=== PATIENT | female | born 1965 | race Asian ===

== ENCOUNTER 2018-01-24 12:25 | Inpatient (IN) | payer OTHER, SELFPAY ==
[~2018-01-24] VITALS: Ht 162.6 cm; Wt 91.1 kg
[2018-01-24] MEDS ORDERED: SODIUM CHLORIDE FLUSH 10ML SYR IVF ONE (14:30)
[2018-01-24 14:45] LABS: BASOPHILS # (AUTO) 0.01 x10^3/uL (0-0.1); BASOPHILS % (AUTO) 0 % (0-1); EOSINOPHILS # (AUTO) 0.38 x10^3/uL (0-0.4); EOSINOPHILS % (AUTO) 4 % (1-7); LYMPHOCYTES # (AUTO) 1.54 x10^3/uL (1-3.4); LYMPHOCYTES % (AUTO) 17 % (22-44); MD NO; MEAN CORPUSCULAR HEMOGLOBIN 24.8 pg (27.0-34.8); MEAN CORPUSCULAR HGB CONC 32.6 g/dL (32.4-35.8); MEAN CORPUSCULAR VOLUME 75.9 fL (80-100); MEAN PLATELET VOLUME 7.9 fL (7.4-10.4); MONOCYTES # (AUTO) 0.54 x10^3/uL (0.2-0.8); MONOCYTES % (AUTO) 6 % (2-9); NEUTROPHILS # (AUTO) 6.79 x10^3/uL (1.8-6.8); NEUTROPHILS % (AUTO) 73 % (42-75); PLATELET COUNT 371 x10^3/uL (130-400); RED BLOOD COUNT 5.95 x10^6/uL (3.82-5.3); RED CELL DISTRIBUTION WIDTH 13.7 % (9.6-15.2)
[2018-01-24 14:48] LABS: ALANINE AMINOTRANSFERASE 46 U/L (12-78); ALBUMIN 3.2 g/dL (3.4-5.0); ANION GAP 10 mmol/L (5-15); CALCIUM 8.8 mg/dL (8.5-10.1); CHLORIDE 107 mmol/L (98-107); CREATININE 1.03 mg/dL (0.55-1.02)
[2018-01-24 14:50] LABS: ALKALINE PHOSPHATASE 112 U/L (45-117); BILIRUBIN,TOTAL 0.1 mg/dL (0.2-1.0); TOTAL PROTEIN 8.4 g/dL (6.4-8.2)
[2018-01-24 15:14] LABS: MICROSCOPIC INDICATED
[2018-01-24 15:19] LABS: CULTURE INDICATED? NO
[2018-01-24] MEDS ORDERED: OMNIPAQUE 350 MG/ML, 100ML BOTTLE ONE (15:21)
[2018-01-24] MEDS ORDERED: LABETALOL 5MG/ML, 20ML ONE (16:51)
[2018-01-24] MEDS: LABETALOL 5MG/ML, 20ML IVPush PRN (16:56)
[2018-01-24] MEDS ORDERED: LABETALOL 5MG/ML, 20ML IVPush PRN (17:00)
[2018-01-24] MEDS ORDERED: GUAIFENESIN/COD200MG-20MG/10ML LIQUID PO PRN (17:00)
[2018-01-24] MEDS ORDERED: ONDANSETRON 2MG/ML, 2ML IVPush PRN (17:00)
[2018-01-24] MEDS ORDERED: ONDANSETRON ODT 4 MG PO PRN (17:00)
[2018-01-24] MEDS ORDERED: hydrALAzine 20 MG/ML, 1ML ONE (17:03)
[2018-01-24] MEDS: hydrALAzine 20 MG/ML, 1ML IVPush PRN (17:07)
[2018-01-24] MEDS ORDERED: MORPHINE SULFATE 4 MG/ML, 1ML ONE (17:18)
[2018-01-24] MEDS: MORPHINE SULFATE 4 MG/ML, 1ML IVPush PRN (17:28)
[2018-01-24 18:06] VITALS: BP 183/120
[2018-01-24 18:28] VITALS: BP 168/113
[2018-01-24 19:26] VITALS: BP 148/92
[2018-01-24 20:45] VITALS: BP 158/108
[2018-01-24] MEDS: ACETAMINOPHEN 325 MG TABLET PO PRN (21:14)
[2018-01-24 23:48] LABS: AMPHETAMINE SCREEN, URINE Negative (Negative); BARBITURATE SCREEN, URINE Negative (Negative); BENZODIAZEPINE SCREEN, URINE Negative (Negative); CANNABINOID SCREEN, URINE Negative (Negative); COCAINE SCREEN, URINE Negative (Negative); METHADONE SCREEN, URINE Negative (Negative); OPIATE SCREEN, URINE Positive (Negative)
[2018-01-25] VITALS (10 sets, daily range): BP systolic 122–191; BP diastolic 72–140
[2018-01-25 06:03] LABS: BASOPHILS # (AUTO) 0.04 x10^3/uL (0-0.1); BASOPHILS % (AUTO) 0 % (0-1); EOSINOPHILS # (AUTO) 0.36 x10^3/uL (0-0.4); EOSINOPHILS % (AUTO) 3 % (1-7); LYMPHOCYTES # (AUTO) 1.34 x10^3/uL (1-3.4); LYMPHOCYTES % (AUTO) 12 % (22-44); MD NO; MEAN CORPUSCULAR HEMOGLOBIN 25.2 pg (27.0-34.8); MEAN CORPUSCULAR HGB CONC 32.5 g/dL (32.4-35.8); MEAN CORPUSCULAR VOLUME 77.5 fL (80-100); MEAN PLATELET VOLUME 7.7 fL (7.4-10.4); MONOCYTES # (AUTO) 0.76 x10^3/uL (0.2-0.8); MONOCYTES % (AUTO) 7 % (2-9); NEUTROPHILS # (AUTO) 8.34 x10^3/uL (1.8-6.8); NEUTROPHILS % (AUTO) 77 % (42-75); PLATELET COUNT 384 x10^3/uL (130-400); RED BLOOD COUNT 5.48 x10^6/uL (3.82-5.3)
[2018-01-25 06:07] LABS: ALBUMIN 2.9 g/dL (3.4-5.0); ANION GAP 9 mmol/L (5-15); CALCIUM 8.6 mg/dL (8.5-10.1); CHLORIDE 107 mmol/L (98-107)
[2018-01-25 06:15] LABS: ALANINE AMINOTRANSFERASE 46 U/L (12-78); ALKALINE PHOSPHATASE 102 U/L (45-117); BILIRUBIN,TOTAL 0.1 mg/dL (0.2-1.0); CHOL/HDL RATIO 5.4; CHOLESTEROL, TOTAL 102 mg/dL (140-239); FREE T4 (FREE THYROXINE) 1.27 ng/dL (0.76-1.46); HDL CHOL % 19 % (28-40); HDL CHOLESTEROL (DIRECT) 19 mg/dL (40-60); LDL CHOLESTEROL,CALCULATED 50 mg/dL (54-169); LDL/HDL RATIO 2.6 (0.5-3.0); TOTAL PROTEIN 7.7 g/dL (6.4-8.2); TRIGLYCERIDES 166 mg/dL (50-200); VLDL CHOLESTEROL 33 mg/dL (0-25)
[2018-01-25 08:22] LABS: INTERNATIONAL NORMALIZED RATIO 0.97 (0.93-1.1)
[2018-01-25] MEDS: MORPHINE SULFATE 4 MG/ML, 1ML IVPush PRN ×2 (09:36→17:49)
[2018-01-25] MEDS: DOCUSATE 100 MG CAPSULE PO PRN ×2 (13:39→20:20)
[2018-01-25] MEDS: hydrALAzine 20 MG/ML, 1ML IVPush PRN (16:50)
[2018-01-25] MEDS: LABETALOL 5MG/ML, 20ML IVPush PRN (17:49)
[2018-01-25] MEDS: HYDROcodone/APAP 5/325 TABLET PO PRN (22:14)
[2018-01-25 22:44] LABS: HEMOGLOBIN A1C 6.1 % (4.2-6.3)
[2018-01-26 01:00] VITALS: BP 142/89
[2018-01-26] MEDS: MORPHINE SULFATE 4 MG/ML, 1ML IVPush PRN ×4 (01:12→18:48)
[2018-01-26 07:19] VITALS: BP 167/104
[2018-01-26] MEDS ORDERED: BISACODYL 10 MG SUPP ONE (09:03)
[2018-01-26] MEDS: LISINOPRIL 10 MG TABLET PO SCH (09:06)
[2018-01-26] MEDS: HYDROcodone/APAP 5/325 TABLET PO PRN ×2 (09:10→17:24)
[2018-01-26] MEDS: BISACODYL 10 MG SUPP PR PRN (09:10)
[2018-01-26] MEDS: hydrALAzine 20 MG/ML, 1ML IVPush PRN (11:52)
[2018-01-26 12:00] VITALS: BP 150/80
[2018-01-26] MEDS: DOCUSATE 100 MG CAPSULE PO PRN (12:40)
[2018-01-26] MEDS: ACETAMINOPHEN 325 MG TABLET PO PRN (12:40)
[2018-01-26] MEDS ORDERED: POLYETHYLENE GLYCOL 17 GM PACKET NG PRN (13:00)
[2018-01-26] MEDS ORDERED: MORPHINE SULFATE 4 MG/ML, 1ML ONE (14:14)
[2018-01-26 19:35] VITALS: BP 137/91
[2018-01-26] MEDS ORDERED: METOPROLOL SUCCINATE 25 MG TAB.ER.24H PO SCH (21:00)
[2018-01-26] MEDS: OXYcodone/APAP 7.5/325MG TABLET PO PRN (21:10)
[2018-01-27 02:02] VITALS: BP 132/86
[2018-01-27] MEDS: MORPHINE SULFATE 4 MG/ML, 1ML IVPush PRN ×5 (02:50→23:08)
[2018-01-27 04:59] LABS: BASOPHILS # (AUTO) 0.02 x10^3/uL (0-0.1); BASOPHILS % (AUTO) 0 % (0-1); EOSINOPHILS # (AUTO) 0.33 x10^3/uL (0-0.4); EOSINOPHILS % (AUTO) 3 % (1-7); LYMPHOCYTES # (AUTO) 1.52 x10^3/uL (1-3.4); LYMPHOCYTES % (AUTO) 14 % (22-44); MD NO; MEAN CORPUSCULAR HGB CONC 32.6 g/dL (32.4-35.8); MEAN CORPUSCULAR VOLUME 76.6 fL (80-100); MEAN PLATELET VOLUME 7.7 fL (7.4-10.4); MONOCYTES # (AUTO) 0.88 x10^3/uL (0.2-0.8); MONOCYTES % (AUTO) 8 % (2-9); NEUTROPHILS # (AUTO) 8.53 x10^3/uL (1.8-6.8); NEUTROPHILS % (AUTO) 76 % (42-75); PLATELET COUNT 419 x10^3/uL (130-400); RED BLOOD COUNT 5.61 x10^6/uL (3.82-5.3); RED CELL DISTRIBUTION WIDTH 14.1 % (9.6-15.2)
[2018-01-27 05:05] LABS: ANION GAP 10 mmol/L (5-15); CALCIUM 8.9 mg/dL (8.5-10.1); CHLORIDE 104 mmol/L (98-107)
[2018-01-27 05:07] LABS: CREATININE 0.96 mg/dL (0.55-1.02)
[2018-01-27] MEDS ORDERED: CARVEDILOL 6.25 MG TABLET PO SCH (08:00)
[2018-01-27] MEDS: LISINOPRIL 10 MG TABLET PO SCH (08:09)
[2018-01-27 08:47] VITALS: BP 136/94
[2018-01-27] MEDS: OXYcodone/APAP 7.5/325MG TABLET PO PRN (10:48)
[2018-01-27] MEDS ORDERED: FAMOTIDINE 20 MG/2 ML IVPush ONE (11:00)
[2018-01-27] MEDS ORDERED: DIPHENHYDRAMINE 50 MG/ML, 1ML IVPush ONE (11:00)
[2018-01-27] MEDS ORDERED: methylPREDNISolone SOD SUCC 125 MG/2 ML IVPush ONE (11:00)
[2018-01-27] MEDS ORDERED: POLYETHYLENE GLYCOL 17 GM PACKET NG PRN (13:30)
[2018-01-27] MEDS: AMLODIPINE 5 MG TABLET PO SCH ×2 (13:48→23:00)
[2018-01-27 14:20] VITALS: BP 157/99
[2018-01-27] MEDS ORDERED: GOLYTELY 4,000ML ORAL.SOL PO ONE (17:30)
[2018-01-27] MEDS: CARVEDILOL 25 MG TABLET PO SCH ×2 (17:56→18:00)
[2018-01-27] MEDS: CHLORTHALIDONE 25 MG TABLET PO SCH (18:04)
[2018-01-27 21:20] VITALS: BP 116/76
[2018-01-28 02:59] VITALS: BP 127/80
[2018-01-28 05:51] LABS: BASOPHILS # (AUTO) 0.03 x10^3/uL (0-0.1); BASOPHILS % (AUTO) 0 % (0-1); EOSINOPHILS # (AUTO) 0.14 x10^3/uL (0-0.4); EOSINOPHILS % (AUTO) 1 % (1-7); LYMPHOCYTES # (AUTO) 1.23 x10^3/uL (1-3.4); LYMPHOCYTES % (AUTO) 11 % (22-44); MD NO; MEAN CORPUSCULAR HGB CONC 32.7 g/dL (32.4-35.8); MEAN CORPUSCULAR VOLUME 76.5 fL (80-100); MEAN PLATELET VOLUME 7.6 fL (7.4-10.4); MONOCYTES # (AUTO) 0.96 x10^3/uL (0.2-0.8); MONOCYTES % (AUTO) 8 % (2-9); NEUTROPHILS # (AUTO) 9.37 x10^3/uL (1.8-6.8); NEUTROPHILS % (AUTO) 80 % (42-75); PLATELET COUNT 393 x10^3/uL (130-400); RED CELL DISTRIBUTION WIDTH 13.8 % (9.6-15.2)
[2018-01-28] MEDS: MORPHINE SULFATE 4 MG/ML, 1ML IVPush PRN (05:59)
[2018-01-28] MEDS: CARVEDILOL 25 MG TABLET PO SCH ×2 (05:59→17:17)
[2018-01-28 06:03] LABS: CHLORIDE 105 mmol/L (98-107)
[2018-01-28 06:10] LABS: ALANINE AMINOTRANSFERASE 50 U/L (12-78); ALBUMIN 2.8 g/dL (3.4-5.0); ALKALINE PHOSPHATASE 140 U/L (45-117); ANION GAP 8 mmol/L (5-15); BILIRUBIN,TOTAL 0.4 mg/dL (0.2-1.0); CALCIUM 8.1 mg/dL (8.5-10.1); TOTAL PROTEIN 7.3 g/dL (6.4-8.2)
[2018-01-28] MEDS ORDERED: FENTANYL PF 250 MCG/5ML ONE (07:00)
[2018-01-28] MEDS ORDERED: MIDAZOLAM 1 MG/ML, 2ML ONE (07:00)
[2018-01-28] MEDS ORDERED: INDIGO CARMINE 0.8%, 5ML ONE (07:09)
[2018-01-28] MEDS ORDERED: METHYLENE BLUE 10 MG/ML 10ML ONE (07:09)
[2018-01-28] MEDS ORDERED: HEPARIN 1,000 UNITS/ML, 10ML ONE (07:10)
[2018-01-28] MEDS ORDERED: NOREPINEPHRINE 1 MG/ML, 4ML ONE (07:13)
[2018-01-28] MEDS ORDERED: CALCIUM CHLORIDE 10%, 10ML SYR ONE (07:13)
[2018-01-28] MEDS ORDERED: ALBUMIN HUMAN 5% 1,000 ML ONE (07:14)
[2018-01-28] MEDS: AMLODIPINE 5 MG TABLET PO SCH ×2 (09:00→21:32)
[2018-01-28] MEDS: CHLORTHALIDONE 25 MG TABLET PO SCH (09:00)
[2018-01-28] MEDS ORDERED: hydrALAzine 20 MG/ML, 1ML IV PRN (09:30)
[2018-01-28] MEDS ORDERED: PROCHLORPERAZINE 5 MG/ML, 2ML IV PRN (09:30)
[2018-01-28] MEDS ORDERED: LABETALOL 5MG/ML, 20ML IV PRN (09:30)
[2018-01-28] MEDS ORDERED: FENTANYL PF 100 MCG/2ML IV PRN (09:30)
[2018-01-28] MEDS ORDERED: DIPHENHYDRAMINE 50 MG/ML, 1ML IVPush PRN (09:30)
[2018-01-28] MEDS ORDERED: HALOPERIDOL 5 MG/ML IV PRN (09:30)
[2018-01-28] MEDS ORDERED: EPHEDRINE 50 MG/ML, 1ML IVPush PRN (10:30)
[2018-01-28] MEDS ORDERED: DO NOT GIVE XX SCH ×2 (10:30)
[2018-01-28] MEDS ORDERED: HYDROmorphone 1 MG/ML, 1ML IV PRN ×2 (10:30→15:14)
[2018-01-28] MEDS ORDERED: NALBUPHINE 10 MG/ML, 1ML IVPush PRN (10:30)
[2018-01-28] MEDS ORDERED: NALOXONE 0.4 MG/ML, 1ML IVPush PRN ×2 (10:30)
[2018-01-28] MEDS ORDERED: CEFAZOLIN 1,000 MG ONE (10:32)
[2018-01-28] MEDS ORDERED: ROCURONIUM 10MG/ML,5ML ONE (10:32)
[2018-01-28] MEDS ORDERED: PROPOFOL 10 MG/ML, 20ML ONE (10:32)
[2018-01-28] MEDS ORDERED: DEXAMETHASONE 4 MG/ML, 1ML ONE (10:32)
[2018-01-28] MEDS ORDERED: MORPHINE SULFATE 4 MG/ML, 1ML ONE (10:32)
[2018-01-28] MEDS ORDERED: SUCCINYLCHOLINE 20 MG/ML, 10ML ONE (10:32)
[2018-01-28] MEDS ORDERED: NEOSTIGMINE 1 MG/ML, 10ML ONE (10:32)
[2018-01-28] MEDS ORDERED: ONDANSETRON 2MG/ML, 2ML ONE (10:32)
[2018-01-28] MEDS ORDERED: GLYCOPYRROLATE 0.2MG/1ML, 5ML ONE (10:32)
[2018-01-28] MEDS ORDERED: PHENYLEPHRINE 10 MG/ML ONE (11:11)
[2018-01-28] MEDS ORDERED: HYDROmorphone 2 MG/ML, 1ML ONE ×3 (11:44→15:46)
[2018-01-28] MEDS: HYDROmorphone 1 MG/ML, 1ML IV PRN ×4 (11:45→12:25)
[2018-01-28] MEDS ORDERED: BUPIVACAINE/PF 0.5%, 30ML 62.5 ML in SODIUM CHLORIDE 0.9% 187.5 ML EPIDCONT SCH (12:30)
[2018-01-28] MEDS ORDERED: MEPERIDINE/PF 50 MG/ML ONE (12:32)
[2018-01-28] MEDS: MEPERIDINE/PF 25MG/0.5ML IVPush PRN ×2 (12:35→12:53)
[2018-01-28 13:34] VITALS: BP 125/81
[2018-01-28] MEDS: POTASSIUM CHLORIDE 20 MEQ in D5%-0.45% NACL 1,000 ML IV SCH (15:50)
[2018-01-28] MEDS: BUPIVACAINE/PF 0.5%, 30ML 62.5 ML in SODIUM CHLORIDE 0.9% 187.5 ML EPIDCONT SCH (17:00)
[2018-01-28] MEDS: PIPERACILLIN/TAZO/PMX 3.375GM 50 ML IV SCH ×2 (17:17→23:21)
[2018-01-28 17:18] VITALS: BP 112/71
[2018-01-28 19:06] VITALS: BP 118/69
[2018-01-28] MEDS: SODIUM CHLORIDE FLUSH 10ML SYR IVF SCH (21:26)
[2018-01-28] MEDS: FAMOTIDINE 20 MG/2 ML IV SCH (21:32)
[2018-01-29 01:08] VITALS: BP 112/76
[2018-01-29] MEDS: OXYcodone/APAP 7.5/325MG TABLET PO PRN ×3 (02:43→15:54)
[2018-01-29] MEDS: POTASSIUM CHLORIDE 20 MEQ in D5%-0.45% NACL 1,000 ML IV SCH ×2 (03:16→11:21)
[2018-01-29] MEDS: PIPERACILLIN/TAZO/PMX 3.375GM 50 ML IV SCH ×4 (05:00→23:28)
[2018-01-29 05:34] LABS: BASOPHILS % (AUTO) 0 % (0-1); EOSINOPHILS # (AUTO) 0.03 x10^3/uL (0-0.4); EOSINOPHILS % (AUTO) 0 % (1-7); LYMPHOCYTES # (AUTO) 0.82 x10^3/uL (1-3.4); LYMPHOCYTES % (AUTO) 7 % (22-44); MD NO; MEAN CORPUSCULAR HGB CONC 32.3 g/dL (32.4-35.8); MEAN CORPUSCULAR VOLUME 77.4 fL (80-100); MEAN PLATELET VOLUME 7.5 fL (7.4-10.4); MONOCYTES # (AUTO) 0.98 x10^3/uL (0.2-0.8); MONOCYTES % (AUTO) 8 % (2-9); NEUTROPHILS # (AUTO) 10.75 x10^3/uL (1.8-6.8); NEUTROPHILS % (AUTO) 86 % (42-75); PLATELET COUNT 410 x10^3/uL (130-400); RED BLOOD COUNT 5.22 x10^6/uL (3.82-5.3); RED CELL DISTRIBUTION WIDTH 13.9 % (9.6-15.2)
[2018-01-29 05:44] LABS: ALBUMIN 2.4 g/dL (3.4-5.0); ANION GAP 7 mmol/L (5-15); CALCIUM 7.8 mg/dL (8.5-10.1); CHLORIDE 104 mmol/L (98-107)
[2018-01-29 05:48] LABS: ALANINE AMINOTRANSFERASE 88 U/L (12-78); ALKALINE PHOSPHATASE 155 U/L (45-117); BILIRUBIN,TOTAL 0.6 mg/dL (0.2-1.0); CREATININE 0.83 mg/dL (0.55-1.02); TOTAL PROTEIN 6.5 g/dL (6.4-8.2)
[2018-01-29] MEDS: CARVEDILOL 25 MG TABLET PO SCH ×2 (06:07→17:49)
[2018-01-29] MEDS: BUPIVACAINE/PF 0.5%, 30ML 62.5 ML in SODIUM CHLORIDE 0.9% 187.5 ML EPIDCONT SCH ×2 (06:35→17:00)
[2018-01-29 07:01] VITALS: BP 120/75
[2018-01-29] MEDS: AMLODIPINE 5 MG TABLET PO SCH ×2 (07:48→20:48)
[2018-01-29] MEDS: SODIUM CHLORIDE FLUSH 10ML SYR IVF SCH ×2 (07:48→20:48)
[2018-01-29] MEDS: CHLORTHALIDONE 25 MG TABLET PO SCH (07:48)
[2018-01-29] MEDS: FAMOTIDINE 20 MG/2 ML IV SCH ×2 (07:48→20:48)
[2018-01-29 12:02] VITALS: BP 117/77
[2018-01-29] MEDS: DIAZEPAM 5 MG/ML, 2ML IV PRN (18:37)
[2018-01-29 19:55] VITALS: BP 158/89
[2018-01-29] MEDS: BISACODYL 10 MG SUPP PR PRN (20:48)
[2018-01-29] MEDS ORDERED: SIMETHICONE 80 MG CHEW TAB ONE (21:13)
[2018-01-29] MEDS: DOCUSATE 100 MG CAPSULE PO PRN (21:28)
[2018-01-29] MEDS ORDERED: SIMETHICONE 80 MG CHEW TAB PO PRN (21:30)
[2018-01-30] MEDS: DIAZEPAM 5 MG/ML, 2ML IV PRN (00:16)
[2018-01-30 01:59] VITALS: BP 160/85
[2018-01-30 04:28] LABS: BASOPHILS # (AUTO) 0.04 x10^3/uL (0-0.1); BASOPHILS % (AUTO) 0 % (0-1); EOSINOPHILS # (AUTO) 0.43 x10^3/uL (0-0.4); EOSINOPHILS % (AUTO) 4 % (1-7); LYMPHOCYTES # (AUTO) 1.19 x10^3/uL (1-3.4); LYMPHOCYTES % (AUTO) 10 % (22-44); MD NO; MEAN CORPUSCULAR HEMOGLOBIN 25.1 pg (27.0-34.8); MEAN PLATELET VOLUME 7.5 fL (7.4-10.4); MONOCYTES # (AUTO) 1.05 x10^3/uL (0.2-0.8); MONOCYTES % (AUTO) 9 % (2-9); NEUTROPHILS # (AUTO) 9.57 x10^3/uL (1.8-6.8); NEUTROPHILS % (AUTO) 78 % (42-75); PLATELET COUNT 402 x10^3/uL (130-400); RED BLOOD COUNT 4.94 x10^6/uL (3.82-5.3); RED CELL DISTRIBUTION WIDTH 13.7 % (9.6-15.2)
[2018-01-30 04:46] LABS: CHLORIDE 102 mmol/L (98-107)
[2018-01-30 04:47] LABS: ALBUMIN 2.4 g/dL (3.4-5.0); ANION GAP 6 mmol/L (5-15); CALCIUM 7.2 mg/dL (8.5-10.1); CREATININE 0.74 mg/dL (0.55-1.02)
[2018-01-30] MEDS: CARVEDILOL 25 MG TABLET PO SCH ×2 (05:39→18:30)
[2018-01-30] MEDS: PIPERACILLIN/TAZO/PMX 3.375GM 50 ML IV SCH ×2 (05:39→10:55)
[2018-01-30] MEDS: POTASSIUM CHLORIDE 20 MEQ in D5%-0.45% NACL 1,000 ML IV SCH ×2 (06:25→17:18)
[2018-01-30 06:48] VITALS: BP 127/82
[2018-01-30] MEDS ORDERED: CALCIUM CARBONATE 500 MG TAB.CHEW PO PRN (08:30)
[2018-01-30] MEDS: AMLODIPINE 5 MG TABLET PO SCH ×2 (09:32→20:03)
[2018-01-30] MEDS: FAMOTIDINE 20 MG/2 ML IV SCH ×2 (09:32→20:03)
[2018-01-30] MEDS: CHLORTHALIDONE 25 MG TABLET PO SCH (09:33)
[2018-01-30] MEDS: SODIUM CHLORIDE FLUSH 10ML SYR IVF SCH ×2 (09:33→20:03)
[2018-01-30] MEDS: BUPIVACAINE/PF 0.5%, 30ML 62.5 ML in SODIUM CHLORIDE 0.9% 187.5 ML EPIDCONT SCH (12:14)
[2018-01-30 12:49] VITALS: BP 121/72
[2018-01-30] MEDS: OXYcodone/APAP 7.5/325MG TABLET PO PRN ×2 (14:29→23:11)
[2018-01-30 20:28] VITALS: BP 102/61
[2018-01-31 03:00] VITALS: BP 100/67
[2018-01-31] MEDS: POTASSIUM CHLORIDE 20 MEQ in D5%-0.45% NACL 1,000 ML IV SCH (03:17)
[2018-01-31 05:02] LABS: BASOPHILS # (AUTO) 0.03 x10^3/uL (0-0.1); BASOPHILS % (AUTO) 0 % (0-1); EOSINOPHILS # (AUTO) 0.35 x10^3/uL (0-0.4); EOSINOPHILS % (AUTO) 3 % (1-7); LYMPHOCYTES # (AUTO) 1.19 x10^3/uL (1-3.4); LYMPHOCYTES % (AUTO) 11 % (22-44); MD NO; MEAN CORPUSCULAR HGB CONC 32.5 g/dL (32.4-35.8); MEAN CORPUSCULAR VOLUME 77.2 fL (80-100); MEAN PLATELET VOLUME 7.9 fL (7.4-10.4); MONOCYTES # (AUTO) 0.83 x10^3/uL (0.2-0.8); MONOCYTES % (AUTO) 8 % (2-9); NEUTROPHILS # (AUTO) 8.23 x10^3/uL (1.8-6.8); NEUTROPHILS % (AUTO) 78 % (42-75); PLATELET COUNT 421 x10^3/uL (130-400); RED BLOOD COUNT 4.92 x10^6/uL (3.82-5.3); RED CELL DISTRIBUTION WIDTH 14.3 % (9.6-15.2)
[2018-01-31 05:19] LABS: CHLORIDE 101 mmol/L (98-107)
[2018-01-31] MEDS: CARVEDILOL 25 MG TABLET PO SCH ×2 (05:19→18:23)
[2018-01-31 05:24] LABS: ANION GAP 7 mmol/L (5-15); CALCIUM 7.8 mg/dL (8.5-10.1); CREATININE 0.77 mg/dL (0.55-1.02)
[2018-01-31] MEDS: BUPIVACAINE/PF 0.5%, 30ML 62.5 ML in SODIUM CHLORIDE 0.9% 187.5 ML EPIDCONT SCH (06:28)
[2018-01-31 06:58] VITALS: BP 113/73
[2018-01-31] MEDS: FAMOTIDINE 20 MG/2 ML IV SCH (08:11)
[2018-01-31] MEDS: CHLORTHALIDONE 25 MG TABLET PO SCH (08:11)
[2018-01-31] MEDS: AMLODIPINE 5 MG TABLET PO SCH (08:11)
[2018-01-31] MEDS: SODIUM CHLORIDE FLUSH 10ML SYR IVF SCH (08:28)
[2018-01-31] MEDS: OXYcodone/APAP 7.5/325MG TABLET PO PRN ×2 (11:09→18:23)
[2018-01-31 13:45] VITALS: BP 101/65
[2018-01-31] MEDS ORDERED: OXYC1TAB8 PO (18:14)
[2018-01-31] MEDS ORDERED: AMLO10TA6 PO (18:52)
[2018-01-31] MEDS ORDERED: CARV25TA12 PO (18:54)
[2018-01-31] MEDS ORDERED: CHLO50TA PO ×2 (18:57→18:58)
[2018-01-31] MEDS ORDERED: BISA5TAB5 PO (18:59)
[2018-02-01] MEDS ORDERED: AMLO5TAB7 PO (08:13)
[2018-02-01] MEDS ORDERED: CHLO25TA PO (08:13)
[2018-02-01] MEDS ORDERED: CARV25TA12 PO (08:13)
== END 2018-01-31 19:51 | disposition home or self-care (01) | DRG 329 ==
LOC: ED 15:11 → EDIP 16:39 → 4EST 17:30 → 3NW 01-28 13:32
PROVIDERS: ADMIT Hospitalist; ATTEND Hospitalist
PROC: 0DBM0ZZ Excision of Descending Colon, Open Approach (ICD-10-PCS; 2018-01-28)
PROC: 0WQF0ZZ Repair Abdominal Wall, Open Approach (ICD-10-PCS; 2018-01-28)
PROC: 0DTJ0ZZ Resection of Appendix, Open Approach (ICD-10-PCS; 2018-01-28)
PROC: 0UT90ZZ Resection of Uterus, Open Approach (ICD-10-PCS; 2018-01-28)
PROC: 0UT00ZZ Resection of Right Ovary, Open Approach (ICD-10-PCS; 2018-01-28)
PROC: 0UT50ZZ Resection of Right Fallopian Tube, Open Approach (ICD-10-PCS; 2018-01-28)
PROC: 0DBU0ZZ Excision of Omentum, Open Approach (ICD-10-PCS; 2018-01-28)
PROC: 0WBF0ZX Excision of Abdominal Wall, Open Approach, Diagnostic (ICD-10-PCS; 2018-01-28)
PROC: 0DBW0ZX Excision of Peritoneum, Open Approach, Diagnostic (ICD-10-PCS; 2018-01-28)
PROC: 0FT40ZZ Resection of Gallbladder, Open Approach (ICD-10-PCS; principal; 2018-01-28 07:30)
DX: C78.6 Secondary malignant neoplasm of retroperitoneum and peritoneum (principal); N17.0 Acute kidney failure with tubular necrosis; K80.10 Calculus of gallbladder with chronic cholecystitis without obstruction; I16.9 Hypertensive crisis, unspecified; K56.7 Ileus, unspecified; N83.519 Torsion of ovary and ovarian pedicle, unspecified side; R18.8 Other ascites; G89.18 Other acute postprocedural pain; K42.9 Umbilical hernia without obstruction or gangrene; D49.59 Neoplasm of unspecified behavior of other genitourinary organ; I11.9 Hypertensive heart disease without heart failure; C80.1 Malignant (primary) neoplasm, unspecified; Z82.49 Family history of ischemic heart disease and other diseases of the circulatory system; K21.9 Gastro-esophageal reflux disease without esophagitis; Z87.891 Personal history of nicotine dependence; Z82.5 Family history of asthma and other chronic lower respiratory diseases; Z90.721 Acquired absence of ovaries, unilateral
CPT/HCPCS: 36415; 74018; 84145; 99285; J3490; S0028; 0399T; 71046; 74177; 80048; 80053; 80061; 80307; 81001; 82040; 82378; 83036; 83605; 83690; 83735; 84100; 84439; 84443; 85025; 85610; 86304; 87040; 88112; 88304; 88305; 88307; 88331; 88341; 88342; 88360; 93005; 93306; 96374; 96375; G0378; J0690; J1100; J1170; J1644; J2175; J2250; J2270; J2405; J2543; J2704; J2710; J3010; J3360; J3480; P9045; Q0162; Q9967; C1765; G0461; J0330; J0360; J1200; J2370; J7050; Q9968